=== PATIENT | female | born 1960 | race Caucasian/White ===

== ENCOUNTER 2022-09-27 23:04 | Emergency (ER) | payer BC, SELFPAY ==
[2022-09-27 23:10] VITALS: BP 190/98; PULSE 81; RESP 16; TEMP 37.1; O2SAT 97; BMI 55.6
--- NOTE | 2022-09-27 23:34 | XR_ITS ---
[facility] [id number] Patient Name: ROLANDO WHEELER MRN: [id number] date: 1960 Sex: F Assigned Patient Location: ED.MAIN Current Patient Location: ER Accession/Order Number: [id number] Exam Date: 09/27/2022 23:57 Report Date: 09/28/2022 00:27 At the request of: RAFAEL SMITH Procedure: XR chest 2V EXAM: XR chest 2V HISTORY: sob COMPARISON: None available TECHNIQUE: 2 view chest x-ray frontal and lateral FINDINGS: No lung consolidation, large pleural effusions, pneumothorax, or acute bony abnormality. Cardiac size is unremarkable. 9 mm oval dense opacity of the right mid lung. IMPRESSION: No radiographic evidence for acute chest abnormality. 9 mm oval dense opacity of the right mid lung reflecting calcified granuloma or pulmonary nodule. Electronically authenticated by: LAVERN ALCANTARA Date: 09/28/2022 00:27
--- NOTE | 2022-09-27 23:35 | ECG_ITS ---
[facility] Test Date: 2022-09-27 Pat Name: ROLANDO WHEELER Department: Room: - Gender: Female Emergency Medicine Physician: : 1960 Requested By: [id number] Order Number: [id number] Reading MD: ALANA DAVIS Measurements Intervals Ary Rate: 70 P: 43 IA: 162 QRS: 10 QRSD: 90 T: 63 QT: 386 QTc: 408 Interpretive Statements 1100 Sinus rhythm 5222 Moderate voltage criteria for LVH, may be normal variant 9130 borderline ECG No previous ECG available for comparison Electronically Signed On 09-28-2022 7:20:40 EDT by ALANA DAVIS
[2022-09-27 23:37] LABS: Glucometer 157 mg/dL (74-106)
--- NOTE | 2022-09-27 23:48 | ED_ITS ---
HPI - General Adult General Chief complaint: Weakness Stated complaint: general weakness Time Seen by Provider: 09/27/22 23:34 Mode of arrival: walk-in History of Present Illness HPI narrative: Patient is a 61-year-old female who is presenting To the Emergency Room with multiple complaints. Patient's been having cough, congestion since September 15. Patient has a significant history of noncompliance in the past year. Patient has a history of hypertension, diabetes, takes no medication. Patient did have a PCP in [place] that she has not seen in over a year, Dr. Quiñonez. Patient has no explosives detonator. Patient states that she's been working many hours here at [employer] for the past 1.5 years and she still has not established a PCP. 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 Patient states she has ongoing hypertension and elevated blood sugars. 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 Patient states her cough, congestion is not improving in the past 2 weeks and she becoming more weak, fatigued, and having intermittent episodes where she is becoming more somnolent at home and at work. Patient has no PCP, no medical care at this time. No recent traveling, patient states she works out of hours. No other acute complaints this time. Patient has a clear sinus drainage, intermittent cough to clear her clear drainage in her throat. Patient has clear runny nose and relief the past 2 weeks. Patient currently has no chest pain or tightness. Patient has no significant shortness of breath at rest, mild shortness of breath with exertion. No abdominal pain, nausea vomiting. No diarrhea. No urinary or bowel or bladder complaints. Related Data Allergies Allergy/AdvReac Type Severity Reaction Status Date / Time meperidine [From Demerol] Allergy Vomiting Verified 09/27/22 23:18 lisinopril AdvReac Cough Verified 09/27/22 23:18 Review of Systems ROS Narrative All systems are negative except as noted/marked. All systems reviewed and otherwise negative. [facility] Medical History (Updated 09/28/22 @ 00:05 by Ronan Keita MD) Exam Narrative Exam Narrative: Nurses note and vital signs reviewed and patient is not hypoxic. General: The patient appears well and in no apparent distress. Patient is resting comfortably on cart. Patient is not toxic, lethargic, or listless Skin: Warm, dry, no pallor noted. There is no rash noted. No petechiae, purpura. Head: Normocephalic, atraumatic Eye: Normal conjunctiva, no drainage, EOMI. PERRL Ears, Nose, Mouth, and Throat: oral mucosa is moist. Nares patent. Mouth without vesicles. Cardiovascular: Regular Rate and Rhythm, no murmur, gallop, rub Respiratory: Patient is in no distress, no accessory muscle use, lungs are clear to auscultation, no wheezing, rales or rhonchi Back: non-tender, no CVA tenderness bilaterally to percussion. No CT LS midline pain GI: soft, obese, no tenderness to palpation, no masses appreciated. No rebound, guarding, or rigidity noted. No flank pain bilateral, No distention Musculoskeletal: Patient has full range of motion of all of the extremities, no motor, sensory, or focal neurological deficits. Patient has chronic bilateral lower extremity peripheral edema Neurological: A&O x3, normal speech Psychiatric: Cooperative Constitutional Vital Signs - 24 hr 09/27/22 23:10 Temperature 98.7 F Pulse Rate [Monitor] 81 Respiratory Rate 16 Blood Pressure [Left Arm] 190/98 H Pulse Oximetry 97 Oxygen Delivery Method Room Air Course Vital Signs Vital signs: Vital Signs Temperature 98.7 F 09/27/22 23:10 Pulse Rate 81 09/27/22 23:10 Respiratory Rate 16 09/27/22 23:10 Blood Pressure 190/98 H 09/27/22 23:10 Pulse Oximetry 97 09/27/22 23:10 Oxygen Delivery Method Room Air 09/27/22 23:10 Temperature 98.7 F 09/27/22 23:10 Pulse Rate 81 09/27/22 23:10 Respiratory Rate 16 09/27/22 23:10 Blood Pressure 190/98 H 09/27/22 23:10 Pulse Oximetry 97 09/27/22 23:10 Oxygen Delivery Method Room Air 09/27/22 23:10 Medical Decision Making MDM Narrative Medical decision making narrative: Patient feels a little better after 1 L of IV fluids. Patient will be discharged to follow-up and establish PCP. Patient understands if she continues medical compliance, she will have drastic poor outcomes in the very near future most likely, especially secondary to her family history of similar outcomes with her parents and cardiovascular disease. Patient was given information about Dr. Cuadra and Dr. Nolen where she lives in [place]. Patient was given a PCP list of [place] physicians. Patient has no other questions at this time, relieved that everything is showing any acute findings. Lab Data Lab results reviewed: Yes I reviewed the patient's lab results Labs: Lab Results 09/27/22 09/27/22 Range/Units 00:00 23:35 WBC 8.2 (4.0-11.0) 10^3/uL RBC 5.06 (4.20-5.40) 10^6/uL Hgb 14.3 (12.0-16.0) g/dL Hct 43.6 (36.0-48.0) % MCV 86.2 (81.0-99.0) fL MCH 28.3 (26.7-34.0) pg MCHC 32.8 (29.9-35.2) g/dL RDW 13.6 (11.0-15.0) % Plt Count 238 (150-450) 10^3/uL MPV 11.1 (9.5-13.5) fL Neut % (Auto) 50.6 (43.0-75.0) % Lymph % (Auto) 40.1 (20.5-60.0) % [place] % (Auto) 6.0 (1.7-12.0) % Eos % (Auto) 2.4 (0.9-7.0) % Baso % (Auto) 0.7 (0.2-2.0) % Neut # (Auto) 4.2 (1.4-6.5) 10^3/uL Lymph # (Auto) 3.3 (1.2-3.8) 10^3/uL [place] # (Auto) 0.5 (0.3-0.8) 10^3/uL Eos # (Auto) 0.2 (0.0-0.7) 10^3/uL Baso # (Auto) 0.1 (0.0-0.1) 10^3/uL Abs Immat Gran (auto) 0.02 (0.00-0.03) 10^3/uL Imm/Tot Granulo (auto) 0.2 (0.0-0.5) % Sodium 135 L (136-145) mmol/L Potassium 3.9 (3.5-5.1) mmol/L Chloride 99 (98-107) mmol/L Carbon Dioxide 28.8 (21.0-32.0) mmol/L Anion Gap 11.1 BUN 16.0 (7.0-18.0) mg/dL Creatinine 0.92 (0.55-1.02) mg/dL Est GFR ( Amer) >60 (>=60) Est GFR (Non-Af Amer) >60 (>=60) BUN/Creatinine Ratio 17.4 Glucose 161 H (74-106) mg/dL Calcium 10.0 (8.5-10.1) mg/dL Total Bilirubin 0.3 (0.2-1.0) mg/dL AST 13 L (15-37) U/L ALT 26 (14-59) U/L Alkaline Phosphatase 102 (46-116) U/L Total Creatine Kinase 65 (26-192) U/L Troponin I High Sens 8.6 (4.0-51.3) pg/mL NT-Pro-B Natriuret Pep 88.0 (<=900.0) pg/mL Total Protein 8.2 (6.4-8.2) g/dL Albumin 3.3 L (3.4-5.0) g/dL Globulin 4.9 g/dL Albumin/Globulin Ratio 0.7 Lipase 63.0 L (73.0-393.0) U/L POC Glucose 157 H (74-106) mg/dL Imaging Data Chest x-ray: Attestation: I have reviewed the pertinent imaging results. My impression: Chest x-ray shows no acute cardiopulmonary disease. ECG Data Attestation: I personally reviewed and interpreted this ECG as follows: (EKG interpretation. Normal sinus rhythm at 70 beats a minute. Normal axis deviation. No acute ST elevation, no acute ectopy. QTC of 408.) Discharge Plan Discharge Chief Complaint: Weakness Clinical Impression: Fatigue, Medical non-compliance, Dyspnea, Chronic hyperglycemia, Hypertension Patient Disposition: Home, Self-Care Instructions: Chronic Hypertension (ED), Weakness (ED), Dyspnea (ED), Fatigue (ED), Diabetic Hyperglycemia (ED) Additional Instructions: You must follow-up with a PCP and reestablish healthcare. Dr. Lei Cuadra at [facility] or Dr. Nolen in [place]. PCP list has been given. You need to start taking Hypertension and Hyperglycemia again MEHNA[facility] Stand Alone Forms: Portal Instructions Referrals: Physician,Non-Staff, MD [Primary Care Provider] - 1 week
[2022-09-28 00:10] LABS: Basophils Absolute Auto 0.1 10^3/uL (0.0-0.1); Basophils Percent Auto 0.7 % (0.2-2.0); Eosinophils Absolute Auto 0.2 10^3/uL (0.0-0.7); Eosinophils Percent Auto 2.4 % (0.9-7.0); Hematocrit 43.6 % (36.0-48.0); Hemoglobin 14.3 g/dL (12.0-16.0); Immature Granulocytes Abs Auto 0.02 10^3/uL (0.00-0.03); Immature Granulocytes Pct Auto 0.2 % (0.0-0.5); Lymphocytes Absolute Auto 3.3 10^3/uL (1.2-3.8); Lymphocytes Percent Auto 40.1 % (20.5-60.0); Mean Corpuscular HGB Conc 32.8 g/dL (29.9-35.2); Mean Corpuscular Hemoglobin 28.3 pg (26.7-34.0); Mean Corpuscular Volume 86.2 fL (81.0-99.0); Mean Platelet Volume 11.1 fL (9.5-13.5); Monocytes Absolute Auto 0.5 10^3/uL (0.3-0.8); Neutrophils Absolute Auto 4.2 10^3/uL (1.4-6.5); Neutrophils Percent Auto 50.6 % (43.0-75.0); Platelet Count 238 10^3/uL (150-450); Red Blood Count 5.06 10^6/uL (4.20-5.40); Red Cell Distribution Width 13.6 % (11.0-15.0); White Blood Count 8.2 10^3/uL (4.0-11.0)
[2022-09-28] MEDS: 0.9 % SODIUM CHLORIDE 1,000 ML 1000 ML IV (00:12)
[2022-09-28 00:23] LABS: Creatine Kinase 65 U/L (26-192)
[2022-09-28 00:31] LABS: Alanine Aminotransferase 26 U/L (14-59); Albumin Globulin Ratio 0.7; Albumin Level 3.3 g/dL (3.4-5.0); Alkaline Phosphatase 102 U/L (46-116); Anion Gap 11.1; Aspartate Amino Transferase 13 U/L (15-37); BUN Creatinine Ratio 17.4; Bilirubin Total 0.3 mg/dL (0.2-1.0); Carbon Dioxide 28.8 mmol/L (21.0-32.0); Chloride 99 mmol/L (98-107); Estimated GFR (African America >60 (>=60); Estimated GFR (Non-African Ame >60 (>=60); Globulin 4.9 g/dL; Glucose 161 mg/dL (74-106); Potassium 3.9 mmol/L (3.5-5.1); Sodium 135 mmol/L (136-145); Total Protein 8.2 g/dL (6.4-8.2); Troponin I High Sensitivity 8.6 pg/mL (4.0-51.3)
== END 2022-09-28 01:10 | disposition home or self-care (01) ==
PROVIDERS: Emergency Provider Emergency Medicine
DX: R53.83 Other fatigue (principal); R06.00 Dyspnea, unspecified; I10 Essential (primary) hypertension; E11.65 Type 2 diabetes mellitus with hyperglycemia; E66.9 Obesity, unspecified; Z91.199 Patient's noncompliance with other medical treatment and regimen due to unspecified reason
CPT/HCPCS: 36415; 71046; 80053; 82550; 82948; 83690; 83880; 84484; 85025; 93005; 96374; 99285

== ENCOUNTER 2022-11-02 06:33 | Outpatient (OUT) | payer BC, SELFPAY ==
--- NOTE | 2022-11-02 08:00 | NM_ITS ---
Patient: ROLANDO WHEELER Exam Date: 11/02/2022 : 1960 Gender:F Ordering : DR Chencho Smith . Admission #: [id number] Family : Non-Staff Physician Order #: [id number] CLICK HERE TO VIEW EXAM RADIOLOGY REPORT PROCEDURE: NM CASSIDY PERF SPECT REST STR COMPARISON: None. INDICATIONS: Chest pain, hypertension TECHNIQUE: Exam Description: Stress/Rest two day protocol gated SPECT Rest Imagin.8 mCi Tc-99m Cardiolite IV on 11/03/2022 Stress Imaging 25.3 mCi Tc-99m Cardiolite IV on 11/02/2022 Exercise Protocol: 0.4 mg Lexiscan given IV Heart Rate (bpm): Rest: 71 Max: 105 PMHR: 65 Blood Pressure: Rest: 202/108 Max: 208/110 Symptoms: Rest and peak stress ECG findings were normal and the exercise portion of the study was normal per attending physician Dr. Kang . For more details please see separate cardiac stress test report. FINDINGS: QUALITY OF STUDY: Excellent. PERFUSION DEFECT: None. LOCATION: N/A SIZE: N/A. SEVERITY: N/A. TYPE: N/A. WALL MOTION: Normal. LV SIZE: Normal. 104 mL. TID / TCD: None; 1.0 LVEF: Normal. Calculated EF 58%. SUMMARY: Myocardial perfusion imaging study is NORMAL. CONCLUSION: 1. Normal nuclear medicine myocardial perfusion scan. Dictated by: Phillip Tabares M.D. on 11/03/2022 at 14:52 Approved by: Phillip Tabares M.D. on 11/03/2022 at 14:55
[2022-11-02] MEDS: REGADENOSON 0.4 MG/5 ML SYRINGE IV (08:12)
--- NOTE | 2022-11-02 10:18 | PM.STRESS ---
Stress Test Stress Test Allergies Allergy/AdvReac Type Severity Reaction Status Date / Time meperidine [From Demerol] Allergy Vomiting Verified 09/27/22 23:18 lisinopril AdvReac Cough Verified 09/27/22 23:18 Requesting physician: Chencho Smith Procedure: Lexiscan Cardiolite stress test General Information: Reason for Stress Test: Hypertension Cardiac History and Risk Factors: History of hypertension and diabetes. Extensive family history including CHF, [place], afib, pacemakers. Resting 12 - Lead Electrocardiogram: Rate & rhythm: Normal sinus at a rate of 71. [place]: Normal T-waves: Flattened in aVL ST-segments: Normal orientation Stress Test: Protocol: Wayne protocol was initiated, but due to an elevated baseline blood pressure of 202/108, the exercise component was canceled with testing changed to Lexiscan protocol: injection of 0.4mg Lexiscan IV push followed by Cardiolite. Blood pressure: Initial: 202/108, Maximum: 208/110 Rate & rhythm: Patient remained in sinus rhythm during the study.? The maximum heart rate was 105, which was 65% of the maximum predicted heart rate of 160. ST-segments & T-waves: There were no T-wave changes or ST-segment changes when compared to the baseline EKG. Patient response/symptoms: There were no symptoms reported. Interpretation: This is a normal Lexiscan stress test.? Cardiolite imaging interpretation will be reported separately.? Clinical correlation required.?
== END 2022-11-02 06:34 | disposition home or self-care (01) ==
LOC: CARD 06:33
PROVIDERS: Visit Provider Family Medicine
DX: I10 Essential (primary) hypertension (principal); R07.9 Chest pain, unspecified
CPT/HCPCS: 78452; 93017; A9500; J2785